=== PATIENT | female | born 1960 | race Caucasian/White ===

== ENCOUNTER 2022-09-14 06:31 | Outpatient (CLI) | payer BC, SELFPAY ==
--- NOTE | 2022-09-14 08:11 | W.ANESCHARGE ---
Anesthesia Charges Start Date/Time Anesthesia Start Date: 09/14/22 Anesthesia Start Time: 07:26 Stop Date/Time Anesthesia Stop Date: 09/14/22 Anesthesia Stop Time: 07:58
== END 2022-09-14 06:32 | disposition home or self-care (01) ==
PROVIDERS: PCP Family Medicine; Visit Provider Surgery
DX: Z12.11 Encounter for screening for malignant neoplasm of colon (principal); Z80.0 Family history of malignant neoplasm of digestive organs
CPT/HCPCS: 45378; 812; J2704